=== PATIENT | female | born 1965 | race Caucasian/White ===

== ENCOUNTER 2017-05-04 09:50 | Day surgery (SDC) | payer OTHER ==
[~2017-05-04] VITALS: Ht 154.9 cm; Wt 76.7 kg
[~2017-05-04 09:50] MED LIST: DAILY VITE1 EACH PO; VITAMIN D2000 UNI1 PO
[2017-05-04] MEDS ORDERED: IBUPROFEN600 MG PO (13:13)
[2017-05-04] MEDS ORDERED: OXYCODON-ACETA1 EAC2 PO (13:14)
[2017-05-04] MEDS ORDERED: MAPAP325 MG PO (13:14)
--- NOTE | 2017-05-04 19:42 | OR ---
[facility] [address], [place] [address] Signed DATE OF OPERATION: 05/04/2017 SURGEON: Johanny Ferrell MD PREOPERATIVE DIAGNOSIS: Chronic calculous cholecystitis. POSTOPERATIVE DIAGNOSIS: Chronic calculous cholecystitis. PROCEDURES: 1. Laparoscopic cholecystectomy with intraoperative cholangiogram. 2. Surgeon-directed fluoroscopy. SURGEON: Johanny Ferrell MD ANESTHESIA: General endotracheal, [address] CRNA and local 20 mL of 0.25% Marcaine with epinephrine. INDICATION: This 51-year-old obese white woman is a patient of Dr. Sohail Bauman, who has had recurrent bouts of right upper abdominal pain. A gallbladder ultrasound was performed confirming gallstones within the gallbladder. She has rather typical biliary disease. She has family history of cholecystectomy in mother and sister. She was admitted at this time to undergo cholecystectomy preferred by laparoscopic approach understanding the risks of bleeding, infection, bile duct injury, need for open procedure, and of course failure to cure her symptoms. Understands that she wished to proceed. FINDINGS: The gallbladder was chronically inflamed. Once excised, there was noted to have 2 large gallstones. Chronic inflammatory change of the mucosa was noted. Cholangiogram was normal. Liver was normal. DESCRIPTION OF PROCEDURE: The patient was brought to the operating room, given a general endotracheal anesthetic. Preoperative antibiotic Ancef was given. Sequential compression device stockings applied and heparin subcutaneously administered. Electronically Signed By: JOHANNY FERRELL MD 05/04/17 194 PATIENT NAME: SHAYY ZAVALA OPERATIVE REPORT DATE OF : 67 PHYSICIAN: JOHANNY FERRELL MD REPORT #: [id number] REPORT IS CONFIDENTIAL AND NOT TO BE RELEASED WITHOUT AUTHORIZATION [facility] [address], [place] [address] Signed After general endotracheal anesthesia and sterile preparation, an infraumbilical incision was made and using an open Diaz cannula technique, pneumoperitoneum was achieved at level 14 mmHg with carbon dioxide gas. Intra-abdominal inspection showed no sign of ascites or carcinomatosis. Three additional trocars were placed in usual configuration in the subxiphoid, right midclavicular, and right anterior axillary line. The gallbladder was elevated cephalad and omental adhesions on the undersurface were taken down bluntly. Further elevation of the gallbladder was accomplished in lateral retraction of the gallbladder undertaken using blunt and electrocautery dissection. The [place] of [place] was dissected free. Ultimately found was relatively small cystic duct. A clip was applied across gallbladder cystic duct junction and a transverse choledochotomy made in the cystic duct. Egress of clear bile was noted upon retrograde milking of the duct. With various manipulations, the Jean type cholangiocatheter could be inserted into the small cystic duct and intraoperative cholangiography undertaken with surgeon-directed fluoroscopy. Free flow of contrast was noted into the biliary tree with prompt emptying into the duodenum. There was no sign of filling defect, biliary anomaly, or other problem. The catheter was removed and the cystic duct was triply clipped and divided. The gallbladder was dissected free in a retrograde fashion using electrocautery. Brief entry into the gallbladder allowed for spillage of some bile. No stones were spilled. This was suctioned free. The puncture site was grasped and further dissection undertaken ultimately freeing it from the liver entirely. The gallbladder was placed in an endobag and extracted through the infraumbilical port site without problem. The gallbladder was opened on the back table. Upon extrication and found to have 2 large gallstones, no sign of neoplasm and chronic inflammatory change of the mucosa. Irrigation was undertaken in subhepatic space. There was no sign of bile leak, bleeding, or other problem. Excess irrigation of the fluid was suctioned free and plans made for closure. The trocars removed under direct visualization showing no sign of bleeding. The infraumbilical fascial incision was reapproximated with interrupted 0 Vicryl suture. A 20 mL of 0.25% Marcaine with epinephrine was injected locally. Irrigation was undertaken and hemostasis assured. The skin was closed with interrupted 3-0 Vicryl. Steri-Strips were then applied. It is anticipated that the patient will be extubated in the operating room to be transferred to recovery room in good condition, suffering no complication. Johanny Ferrell MD Electronically Signed By: JOHANNY FERRELL MD 05/04/171941 PATIENT NAME: SHAYY ZAVALA OPERATIVE REPORT DATE OF : 67 PHYSICIAN: JOHANNY FERRELL MD REPORT #: [id number] REPORT IS CONFIDENTIAL AND NOT TO BE RELEASED WITHOUT AUTHORIZATION [address] [address] Signed /SHARONL /[id number] cc: Sohail Baumna MD Electronically Signed By: JOHANNY FERRELL MD 05/04/17 1942 PATIENT NAME: SHAYY ZAVALA OPERATIVE REPORT DATE OF : 67 PHYSICIAN: JOHANNY FERRELL MD REPORT #: [id number] REPORT IS CONFIDENTIAL AND NOT TO BE RELEASED WITHOUT AUTHORIZATION
== END 2017-05-04 16:40 | disposition home or self-care (01) ==
LOC: DS 09:50
PROVIDERS: Surgery
PROC: BF13YZZ Fluoroscopy of Gallbladder and Bile Ducts using Other Contrast (ICD-10-PCS; 2017-05-04)
PROC: 0FT44ZZ Resection of Gallbladder, Percutaneous Endoscopic Approach (ICD-10-PCS; principal; 2017-05-04 11:00)
DX: K80.10 Calculus of gallbladder with chronic cholecystitis without obstruction (principal); Z88.0 Allergy status to penicillin; Z98.890 Other specified postprocedural states
CPT/HCPCS: 00790; 74300; J0360; J0690; J1100; J1644; J1885; J2270; J2405; J2704; J2710; J2765; J3010; J7120; Q9967

== ENCOUNTER 2017-05-31 18:30 | Emergency (ER) | payer OTHER ==
[~2017-05-31] VITALS: Ht 154.9 cm; Wt 76.7 kg
[~2017-05-31 18:30] MED LIST changes: +IBUPROFEN600 MG PO; +MAPAP325 MG PO; +OXYCODON-ACETA1 EAC2 PO
== END 2017-05-31 21:12 | disposition home or self-care (01) ==
LOC: ED 18:30
PROC: 0HQLXZZ Repair Left Lower Leg Skin, External Approach (ICD-10-PCS; principal; 2017-05-31)
DX: S81.012A Laceration without foreign body, left knee, initial encounter (principal); Z23 Encounter for immunization; Z88.0 Allergy status to penicillin; Z79.899 Other long term (current) drug therapy; W26.0XXA Contact with knife, initial encounter
CPT/HCPCS: 12002; 90471; 90715; 96372; 99282; J2270; J2550

== ENCOUNTER 2020-02-12 14:29 | Inpatient (IN) | payer BC, OTHER | END 2020-02-16 16:55 | disposition home or self-care (01) | DRG 392 | LOC: ED 14:29 → MS 18:09 | PROVIDERS: ADMIT Surgery | DX: K57.20 Diverticulitis of large intestine with perforation and abscess without bleeding (principal); Z20.828 Contact with and (suspected) exposure to other viral communicable diseases; E66.9 Obesity, unspecified; Z68.32 Body mass index [BMI] 32.0-32.9, adult; Z88.0 Allergy status to penicillin; Z79.899 Other long term (current) drug therapy ==

== ENCOUNTER 2020-04-16 06:33 | Day surgery (SDC) | payer BC ==
[~2020-04-16] VITALS: Ht 152.4 cm; Wt 75.5 kg
[~2020-04-16 06:33] MED LIST changes: +ALLEGRA ALLERG180 MG PO; +CALCIUM MAGNES1 EAC1 PO; +CIPROFLOXACIN500 MG PO; +DIFLUCAN100 MG PO; +MAGNESIUM100 MG PO; +METRONIDAZOLE250 MG PO
--- NOTE | 2020-04-16 09:25 | NUR ---
PT ALERT, ORIENTED AND SUPPORTED BY HER JOHANNY. PT IS HERE FOR SCOPE TO SEE HOW SHE IS DOING. PT SHARED THAT THIS HAS BEEN A DIFFICULT FALL FOR HER PHYSICALLY AND SHE HOPES THE SCOPE RESULTS WILL SHOW SHE HAS TURNED A POSITIVE CORNER. OFFERED A PRAYER, WILL FOLLOW
--- NOTE | 2020-04-16 09:47 | NUR ---
04/16/20 0947 Trisha [address] 0935 PT ARRIVED IN PACU SLEEPY WITH NO C/O'S. ABD SOFT.
--- NOTE | 2020-04-18 15:39 | OR ---
[facility] [address], [place] [address] Signed DATE OF OPERATION: 04/16/2020 SURGEON: Johanny Ferrell MD PREOPERATIVE DIAGNOSIS: History of perforated sigmoid diverticulitis with peridiverticular abscess in January 2020, POSTOPERATIVE DIAGNOSIS: Sigmoid diverticulosis, no evidence of neoplasm. PROCEDURE: Total colonoscopy to cecum. ANESTHESIA: Intravenous sedation, fentanyl 100 mcg and Versed 5 mg. INDICATIONS: This 54-year-old white woman is a patient of Dr. Johanny Bauman, was admitted to the hospital in late January with severe abdominal pain, found on CT scan to have perforated diverticulitis with a peridiverticular abscess. Antibiotic therapy was initiated, which allowed for resolution of her symptoms. Followup has shown her to recover well. She underwent colonoscopy approximately 3 years ago, which showed only diverticulosis. She was offered a colonoscopy and surveillance at this time related to the small, but real possibility of underlying problem of perforation, having been colon cancer. The risks of bleeding, infection, and perforation related to colonoscopy was reviewed with her, she understands and wished to proceed with colonoscopy at this time. FINDINGS: The prep was excellent. Complete colonoscopy was undertaken of the cecum without question. She had numerous diverticula of the sigmoid colon, but no evidence of neoplasm, polyps, or colitis. DESCRIPTION OF PROCEDURE: The patient was brought to the endoscopy suite and placed in lateral decubitus position, given intravenous sedation to the point of slurred speech and nystagmus. Digital rectal examination was normal. Electronically Signed By: JOHANNY FERRELL MD 04/18/20 1539 PATIENT NAME: SHAYY ZAVALA OPERATIVE REPORT DATE OF : 67 REPORT #: [id number] PHYSICIAN: JOHANNY FERRELL MD PCP: CLAUDIA BAUMAN MD REPORT IS CONFIDENTIAL AND NOT TO BE RELEASED WITHOUT AUTHORIZATION [facility] [address], [place] [address] Signed An Olympus video colonoscope was passed into the rectum and manipulated throughout the colon. Numerous diverticula were noted in the sigmoid and mid left colon. The scope was ultimately advanced to the cecum. The ileocecal valve and appendiceal orifice were normal. The scope was withdrawn from that point. Examination throughout showed no sign of polyps or colitis, only the diverticular changes as previously noted. Retroflexed view of the rectum showed no abnormalities. Scope was removed and the patient was taken to the recovery room in good condition. CONCLUDING DIAGNOSIS: Diverticulosis of sigmoid and left colon. PLAN: Recommend regular and high-fiber diet at this point. Should she have recurrent symptoms of diverticulitis, she will contact me or Dr. Bauman, her primary provider once. She does not have a strict indication for resection at this point, it is a consideration if recurrent disease should happen. MD TREY Issa/GLENROY /[id number] Copies: ~ Electronically Signed By: JOHANNY FERRELL MD 04/18/20 1539 PATIENT NAME: SHAYY ZAVALA OPERATIVE REPORT DATE OF : 67 REPORT #: [id number] PHYSICIAN: JOHANNY FERRELL MD PCP: CLAUDIA BAUMAN MD REPORT IS CONFIDENTIAL AND NOT TO BE RELEASED WITHOUT AUTHORIZATION
== END 2020-04-16 10:12 | disposition home or self-care (01) ==
LOC: OPS 06:33 → DS 06:33 → OPS 08:15 → DS 13:00 → OPS 13:00
PROVIDERS: ATTEND Surgery
PROC: 0DJD8ZZ Inspection of Lower Intestinal Tract, Via Natural or Artificial Opening Endoscopic (ICD-10-PCS; principal; 2020-04-16 08:15)
DX: K57.30 Diverticulosis of large intestine without perforation or abscess without bleeding (principal); Z88.0 Allergy status to penicillin; Z79.899 Other long term (current) drug therapy
CPT/HCPCS: 99153; G0500; J2250; J3010; J7121